=== PATIENT | male | born 1950 | race Caucasian/White ===

== ENCOUNTER 2025-06-05 06:06 | Day surgery (SDC) | payer MEDICARE, BC ==
[2025-06-04 10:38] LABS: MEAN PLATELET VOLUME 8.0 FL (7.4-10.4); RED CELL DISTRIBUTION WIDTH 16.4 % (11.5-14.5)
[2025-06-04 10:49] LABS: CREATININE 0.97 MG/DL (0.60-1.10); TOTAL CARBON DIOXIDE 31.3 MMOL/L (24-32); eGFR 76 ML/MIN
[2025-06-04 10:51] LABS: APTT 27 SECONDS (22-32); INR 1.1 INR
[2025-06-05] VITALS (14 sets, daily range): BP systolic 93–135; BP diastolic 54–77; PULSE 41–65; RESP 8–16; TEMP 97.7; O2SAT 92–98
[~2025-06-05] VITALS: Ht 177.8 cm; Wt 88.4 kg
[2025-06-05] MEDS ORDERED: MESA1.2T3 PO (06:41)
[2025-06-05] MEDS ORDERED: EMPA10TA PO (06:41)
[2025-06-05] MEDS ORDERED: CLOP75TA34 PO (06:41)
[2025-06-05] MEDS ORDERED: CARV-50 PO (06:41)
[2025-06-05] MEDS ORDERED: MULT-1249 PO (06:41)
[2025-06-05] MEDS ORDERED: SACU1TAB PO (06:41)
[2025-06-05] MEDS ORDERED: ROSU40TA89 PO (06:41)
[2025-06-05] MEDS ORDERED: TAMS-55 (06:41)
[2025-06-05] MEDS ORDERED: SPIR25TA5 PO (06:41)
[2025-06-05] MEDS ORDERED: PANT40TA54 PO (06:41)
[2025-06-05] MEDS ORDERED: APIX5TAB3 PO (06:41)
[2025-06-05] MEDS ORDERED: AMIO200T76 PO (06:41)
[2025-06-05] MEDS ORDERED: ASCO100031 PO (06:42)
[2025-06-05] MEDS ORDERED: RESV50CA (06:42)
[2025-06-05] MEDS ORDERED: UBID10CA4 PO (06:42)
[2025-06-05] MEDS ORDERED: VITA1CAP PO (06:43)
[2025-06-05] MEDS ORDERED: OSC500T PO (06:44)
[2025-06-05] MEDS ORDERED: L.AC1CAP6 PO (06:44)
[2025-06-05] MEDS ORDERED: SAW/1TAB2 (06:44)
[2025-06-05] MEDS ORDERED: OMEG-166 PO (06:45)
[2025-06-05] MEDS ORDERED: ERGO400C PO (06:45)
[2025-06-05] MEDS ORDERED: SOUR400C (06:46)
[2025-06-05] MEDS ORDERED: VITA100049 PO (06:46)
[2025-06-05] MEDS ORDERED: ELDE350C (06:47)
[2025-06-05] MEDS ORDERED: normal saline 1000ml 1,000 ML IV PRN (06:50)
[2025-06-05] MEDS ORDERED: ceFAZolin 2,000MG in D5W 50mL IV ONE (06:50)
--- NOTE | 2025-06-05 07:22 | ELECTROCARDIOGRAPH REPORT ---
[facility] Test Date: 2025-06-05 Test Time: 07:20:42 Pat Name: FAM LINARES Department: [facility] Patient ID: [id number] Room: Gender: M Manager Equipment: GIGI : 1950 Requested By: THO DUNBAR Order Number: [id number] Reading MD: Dr. JAME Dunbar Measurements Intervals [place] Rate: 41 P: 3 CO: 237 QRS: -49 QRSD: 136 T: 108 QT: 504 QTc: 417 Interpretive Statements Sinus bradycardia Prolonged CO interval RBBB and LAFB Nonspecific T abnormalities, lateral leads Electronically Signed On 06-05-2025 14:16:[address] JAME Dunbar Please click the below link to view image of tracing.
[2025-06-05] MEDS ORDERED: midazolam 1 mg/ML 2ml injection ONE (07:32)
[2025-06-05] MEDS ORDERED: fentaNYL/PF 50MCG/1 ML 2ML syringe ONE (07:32)
[2025-06-05] MEDS ORDERED: LIDOcaine 1% W/epiNEPHrine 1:100,000 20ml vial ONE (07:32)
[2025-06-05] MEDS ORDERED: iohexol 350 MG/ML 50ML vial IV ONE (08:27)
[2025-06-05] MEDS ORDERED: HYDROcodone/acetaminophen 5mg/325mg tablet PO PRN (10:00)
[2025-06-05] MEDS ORDERED: CEPH-585 PO (11:09)
[2025-06-05] MEDS: VANCOMYCIN 1GM 200ML H20 (PEG) 200 ML IV ONE (11:23)
[2025-06-05] MEDS: normal saline 1000ml 1,000 ML IV SCH (11:24)
--- NOTE | 2025-06-05 11:42 | RADIOLOGY REPORT ---
EXAM: DI CHEST,TWO VIEWS CLINICAL HISTORY: s/p pacemaker COMPARISON: None TECHNIQUE: Frontal and lateral view of the chest was obtained FINDINGS: Lines and Tubes: Cardiac pacemaker projects over left chest wall Lungs: No focal consolidation. Pleura: No effusion. No pneumothorax. Cardiomediastinal contours: Unremarkable Bones: No acute osseous abnormality. Status post left shoulder arthroplasty. IMPRESSION: No acute cardiopulmonary disease.
[2025-06-05] MEDS: HYDROcodone/acetaminophen 10/325mg tab PO PRN (14:31)
[2025-06-05] MEDS ORDERED: sod chloride 0.9% 10ml flush syringe IV SCH (16:00)
--- NOTE | 2025-06-07 09:19 | CARDIOLOGY REPORT ---
DATE OF SERVICE: 06/05/2025 DICTATING PHYSICIAN: JAME Dunbar MD PERMANENT PACEMAKER IMPLANTATION REPORT: GENDER: Male. AGE: 74. HEIGHT: 178 cm WEIGHT: 88 kg. BODY SURFACE AREA: 2.06 m2. 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 He had a Holter monitor back in 10/2023, which showed episodes of AFib and also some episodes of bradycardia. He had an event monitor in 12/2024. Lowest heart rate there was 35 per minute. Lately, the patient has been having increasingly tired and fatigued, occasional episodes of dizziness and progressive symptoms and the need for medications for PAF. It is decided to proceed with permanent pacemaker implantation. Risks, benefits, and alternative options were discussed. Informed consent was obtained. SURGEON: JAME Dunbar MD, [facility] DANCE CALLER SURGEON: None. ANESTHESIOLOGIST: None. ANESTHESIA: Conscious sedation and local anesthesia. COMPLICATIONS: None. BLOOD LOSS: Less than 5 mL. PROCEDURE: * Fluoroscopy. * Previous sequential pacemaker implantation. * Conscious sedation time of 60 minutes. DESCRIPTION OF PROCEDURE: Left infraclavicular area was prepped and draped in the usual fashion. Two separate accesses obtained in the left subclavian vein using percutaneous micropuncture technique. Two micropuncture wires were replaced with 2 J-wires. A horizontal incision placed in the left infraclavicular area. Using blunt electrocautery, subcutaneous pacemaker pocket was fashioned. External ends of the J-wires were retrieved into the pacemaker pocket. Two 7-[place] sheaths were advanced over them. Through one of them, RV lead was advanced to the RV apex, screwed into the RV apex. Appropriate pacing and sensing thresholds were placed. Sheath removed by a peel-away technique and lead anchored to the subcutaneous tissue with Ethibond. Through the second 7-[place] sheath, right atrial lead was advanced to the right atrium. J-wire hook. The right atrium screwed into the right atrial appendage. Appropriate pacing and sensing thresholds were obtained. Sheath removed by a peel-away technique and lead anchored to the subcutaneous tissue with Ethibond. Pocket was irrigated with copious antibiotic solution. Leads connected to appropriate sockets of the pulse generator. Set screws were tightened. Tug test performed and the pacemaker was suspended into the pacemaker pocket. The pocket was closed with continuous 0 Vicryl followed by interrupted 0 Vicryl, third layer of interrupted 2-0 Vicryl applied and then skin approximated with mana. Pressure dressing applied. The patient tolerated the procedure with no complications. TECHNICAL INFORMATION: Device used Medtronic MRI compatible pacemaker and lot number [id number], serial number [id number], Medtronic, 06/05/2025, left pectoral location. RIGHT ATRIAL LEAD: Model number 4076, 52 cm long, serial number [id number], Medtronic, 06/05/2025, right atrial appendage, P-wave amplitude 1.6 millivolts, pacing impedance of 513 ohm, pacing threshold 0.75 volts at 0.4 milliseconds. RV LEAD: Model number 5076, 68 cm long, serial number [id number], Medtronic, 06/05/2025, R-wave amplitude of 2.6 millivolts, pacing threshold of 0.5 volt at 0.4 milliseconds. IMPRESSION: A 74-year-old male with classic sinus syndrome with symptomatic tachycardia episode, underwent successful AV sequential pacemaker implantation with no complications. JAME Dunbar MD TID: [id number] RECEIPT: [id number] EUNICE/RABIA/ELEAZAR cc: Arnold Bhatt MD [facility]
== END 2025-06-05 15:00 | disposition home or self-care (01) ==
LOC: SSTAY O 06:06
PROVIDERS: ATTEND Internal Medicine Cardiovascular Disease
DX: I49.5 Sick sinus syndrome (principal); I45.2 Bifascicular block; I25.10 Atherosclerotic heart disease of native coronary artery without angina pectoris; I48.0 Paroxysmal atrial fibrillation; I42.9 Cardiomyopathy, unspecified
CPT/HCPCS: 33208; 36415; 71046; 80048; 85025; 85610; 85730; 93005; 99152; 99153; A4565; C1785; C1898; J0690; J1171; J2250; J3010; J3375; J3490; J7030; Z7610; Q9967

== ENCOUNTER 2025-06-06 02:29 | Emergency (ER) | payer MEDICARE, BC ==
[~2025-06-06] VITALS: Ht 177.8 cm; Wt 89.3 kg
[~2025-06-06 02:29] MED LIST: AMIO200T76 PO; APIX5TAB3 PO; ASCO100031 PO; CARV-50 PO; CEPH-585 PO; CLOP75TA34 PO; ELDE350C; EMPA10TA PO; ERGO400C PO; L.AC1CAP6 PO; MESA1.2T3 PO; MULT-1249 PO; OMEG-166 PO; OSC500T PO; PANT40TA54 PO; RESV50CA; ROSU40TA89 PO; SACU1TAB PO; SAW/1TAB2; SOUR400C; SPIR25TA5 PO; TAMS-55; UBID10CA4 PO; VITA100049 PO; VITA1CAP PO
[2025-06-06 02:37] VITALS: TEMP 98.4
[2025-06-06 03:30] VITALS: BP 102/66; PULSE 60; RESP 10; O2SAT 95
[2025-06-06] MEDS: LIDOcaine 1% W/epiNEPHrine 1:100,000 20ml vial SQ ONE (03:39)
--- NOTE | 2025-06-06 04:01 | Physician Documentation ---
History of Present Illness ~ General Chief Complaint: Post-operative complication Stated Complaint: BLEEDING FROM CATH Time Seen by MD: 02:47 History of Present Illness Initial Comments 74-year-old male presenting with some postoperative bleeding. The patient had a pacemaker placed earlier today by Dr. Dunbar. Reports that tonight he noticed that there was blood oozing from the site. He applied some pressure but reports that the bleeding continued. Denies any dizziness or any other associated symptoms. The pacemaker was placed for sick sinus syndrome and bradycardia. Medication Reconciliation Allergies: Coded Allergies: No Known Allergies (Unverified , 06/06/25) Scheduled Amiodarone Hcl (Cordarone), 1 TAB PO DAILY, (Reported) Apixaban (Eliquis), 1 TAB PO BID, (Reported) Ascorbic Acid (Vitamin C), 1 TAB PO DAILY, (Reported) Calcium Carbonate* (Oscal*), 1 TAB PO DAILY, (Reported) Carvedilol (Carvedilol), 0.5 TAB PO BID, (Reported) Cephalexin*Monohydrate* (Keflex*), 1 CAP PO Q6H Clopidogrel Bisulfate (Clopidogrel), 1 TAB PO DAILY, (Reported) Empagliflozin (Jardiance), 1 TAB PO DAILY, (Reported) Ergocalciferol (Vitamin D), 1 CAP PO DAILY, (Reported) L.acidoph & Paracasei,B.lactis (Probiotic), 1 CAP PO DAILY, (Reported) Mesalamine (Mesalamine), 4 TAB PO DAILY, (Reported) Multivitamin (Multivitamin), 1 TAB PO DAILY, (Reported) [place]-3/Dha/Epa/Fish Oil (Fish Oil 1,000 Mg Ec Softgel), 1 CAP PO DAILY, (Reported) Pantoprazole Sodium (Pantoprazole Sodium), 1 TAB PO DAILY, (Reported) Rosuvastatin Calcium (Rosuvastatin Calcium), 1 TAB PO DAILY, (Reported) Sacubitril/Valsartan (Entresto 24 mg-26 mg Tablet), 1 TAB PO BID, (Reported) Spironolactone (Spironolactone), 1 TAB PO DAILY, (Reported) Ubidecarenone (Co Q-10), 1 CAP PO DAILY, (Reported) Vitamin B Complex (Vitamin B Complex), 1 CAP PO DAILY, (Reported) Miscellaneous Medications Elderberry Fruit (Elderberry), (Reported) Resveratrol (Resveratrol), (Reported) Saw/Vit E/Sod Mag/Lyc/Beta/Pyg (Prostate Health Caplet), (Reported) Sour [place] (Tart Childress), (Reported) Tamsulosin Hcl* (Flomax*), (Reported) Vitamin E Mixed (Vitamin E), 1,000 UNIT PO, (Reported) Review of Systems All Other Systems at this time: Reviewed and Negative Physical Exam Physical Exam Vital Signs: Temperature: 98.4, Source: Oral, Heart Rate: 60, Respiratory Rate: 10, BP: 102/66, Pulse Oximetry: 95, Weight: 89.300 Oxygen Flow Rate: 0 Physical Exam I have reviewed the triage vitals. CONST: Well developed and well nourished. In no acute distress HENT: Head Atraumatic EYES: Pupils are equal, round and reactive to light. Normal conjunctiva NECK: Normal range of motion. Supple. CARDIO: Normal rate and regular rhythm. No murmurs, rubs, or gallops. S1, S2. PULM/CHEST: No respiratory distress. Lungs clear to auscultation. No wheeze. Left upper chest with a pacemaker in place with postprocedural wound which is closed with several mana with oozing blood from the wound. Four mana in place with one of the mana slightly loose. ABD: Soft and nontender. Nondistended. Bowel sounds normal. No guarding. : Exam deferred MSK: No edema. No deformity. NEURO: Alert and oriented to person, place and time. Moving all extremities SKIN: Warm and dry. PSYCH: Normal mood and affect. Good eye contact. Procedures Laceration/Wound Repair Laceration/Wound Repair : Location: Left upper chest Length (cm): 5 Anesthesia: Lidocaine w/ Epi Volume Anesthetic (mls): 6 Prep: betadine Suture Size/Type: 4-0, ethilon Number of Superficial Sutures: 8 Dressing Applied: simple Tolerated Procedure Well?: yes, no complications Procedure Note Pacemaker placement post procedural wound with oozing blood that had slightly reopened. One of the loose mana was removed. Other three mana remained in place. 8 single interrupted sutures were placed to close the wound. Progress Results/Orders Results/Orders Orders - BANDAR BRISENO MD Electrocardiogram (06/06/25 02:48) Completed Orders - BANDAR BRISENO MD Lidocaine 1% W/Epi 1:100,000 (Xylocaine (06/06/25 03:25) Vital Signs 06/06/25 06/06/25 06/06/25 06/06/25 02:37 03:09 03:15 03:30 Temp 98.4 Pulse 67 60 60 60 Resp 16 15 11 10 B/P (MAP) 143/91 123/75 (91) 123/5 (44) 102/66 (78) Pulse Ox 98 98 98 95 O2 Flow Rate 0 0 EKG/XRAY/CT/US/VASC/MRI EKG : Additional Comment EKG as interpreted by me showing an atrial paced rhythm, rhythm is normal sinus, no ischemia, normal axis Medical Decision Making Differential Diagnosis 74-year-old male presenting with a bleeding post procedural wound. The wound was closed with sutures-please see procedure note. Patient is already on Keflex and advised him to continue with this medication. He has follow up with [facility] next week. Advised him to keep this appointment. Return to the ED with any acutely worsening symptoms. Departure Disposition: 01 HOME / SELF CARE / HOMELESS Impression: Primary Impression: Postoperative bleeding from incision Condition: Improved Additional Instructions: Please continue with all of your medications. Keep your appointment with Cardiology next week. Return to the ED with any acutely worsening symptoms. Referrals: NO PRIMARY CARE PROVIDER (PCP) Signature Scribe Signature: 1 Attestation: 1 BANDAR BRISENO MD Jun 06, 2025 04:01
--- NOTE | 2025-06-06 07:29 | ELECTROCARDIOGRAPH REPORT ---
[facility] Test Date: 2025-06-06 Test Time: 02:45:06 Pat Name: FAM LINARES Department: PRE/OP CARDIOLOGY Patient ID: [facility]-[id number] Room: Gender: M Inspector And Tester: : 1950 Requested By: BANDAR BRISENO Order Number: [id number] Reading MD: Dr. JAME Dunbar Measurements Intervals [employer] Rate: 60 P: 0 [place]: 73 QRS: -60 QRSD: 140 T: 89 QT: 473 QTc: 473 Interpretive Statements Atrial-paced rhythm Left bundle branch block Electronically Signed On 06-06-2025 17:26:[address] JAME Dunbar Please click the below link to view image of tracing.
== END 2025-06-06 04:25 | disposition home or self-care (01) ==
LOC: ER 02:29
DX: L76.22 Postprocedural hemorrhage of skin and subcutaneous tissue following other procedure (principal); Z79.899 Other long term (current) drug therapy
CPT/HCPCS: 12002; 93005; 99283; A6258; A6402; Z7610; A6449

== ENCOUNTER 2025-07-29 07:58 | Day surgery (SDC) | payer MEDICARE, BC ==
[2025-07-25 15:46] LABS: MEAN PLATELET VOLUME 7.4 FL (7.4-10.4); PRE OP HEMATOCRIT 43.0 % (42.0-52.0); PRE OP HEMOGLOBIN 14.0 g/dL (14.0-17.9); PRE OP PLATELET COUNT 224 X10'3 (140-440); PRE OP WHITE BLOOD COUNT 5.2 10'3 (4.8-10.8); RED CELL DISTRIBUTION WIDTH 16.0 % (11.5-14.5)
[2025-07-25 15:59] LABS: CREATININE 0.89 MG/DL (0.60-1.10); PRE OP ALT 27 U/L (30-65); PRE OP ANION GAP 6 (8-16); PRE OP AST 21 U/L (10-37); PRE OP BILIRUB, TOTAL 0.4 MG/DL (0.0-1.0); PRE OP GLUCOSE 93 MG/DL (70-104); PRE OP POTASSIUM 4.5 MMOL/L (3.4-5.1); PRE OP SODIUM 142 MMOL/L (135-145); TOTAL CARBON DIOXIDE 31.5 MMOL/L (24-32); eGFR 84 ML/MIN
[~2025-07-29] VITALS: Ht 177.8 cm; Wt 89.0 kg
[2025-07-29] MEDS: ceFAZolin 2gm/dext,iso 50mL 50 ML IV ONE (05:30)
[2025-07-29] MEDS: DOCUMENT DATE & TIME OF BETA-BLOCKER PO ONE (05:30)
[~2025-07-29 07:58] MED LIST changes: -ASCO100031 PO; +ASCO10004 PO; -CARV-50 PO; +CARV6.253 PO; -CEPH-585 PO; -ELDE350C; +ELDE350C PO; -RESV50CA; +RESV50CA PO; -SAW/1TAB2; +SAW/1TAB2 PO; -SOUR400C; +SOUR400C PO; -TAMS-55; +TAMS-55 PO; +ringers solution, lacted 1,000 ML IV SCH
[2025-07-29] MEDS ORDERED: triamcinolone acetonide 40mg/ml inj ONE (08:26)
[2025-07-29] MEDS ORDERED: BUPIVAcaine/PF 2.5mg/ml (0.25%) 10ml vial ONE (08:26)
[2025-07-29] MEDS ORDERED: LIDOcaine 2% (20mg/ml) 5ml vial ONE (08:26)
[2025-07-29 09:00] VITALS: BP 126/75; PULSE 64; RESP 16; TEMP 98; O2SAT 64; O2SAT 97
[2025-07-29] MEDS ORDERED: fentaNYL/PF 50MCG/1 ML 2ML syringe ONE (09:17)
[2025-07-29] MEDS ORDERED: midazolam 1 mg/ML 2ml injection ONE (09:17)
[2025-07-29] MEDS ORDERED: acetaminophen 1,000mg/100ml IV 100 ML IV PRN (09:25)
[2025-07-29] MEDS ORDERED: hydrALAZINE 20mg/ml inj. IV PRN (09:25)
[2025-07-29] MEDS ORDERED: HYDROmorphone/PF 0.2 MG/ML SYRINGE IV PRN ×2 (09:25)
[2025-07-29] MEDS ORDERED: labetalol 20mg/4ml (5mg/ml) syringe IV PRN (09:25)
[2025-07-29] MEDS ORDERED: morphine 4 MG/ML inj SYRINge IV PRN (09:25)
[2025-07-29] MEDS ORDERED: ondansetron/PF 4mg/2ml inj IV PRN (09:25)
[2025-07-29] MEDS: BUPIVAcaine/PF 2.5mg/ml (0.25%) 10ml vial IJ ONE (09:31)
[2025-07-29] MEDS: LIDOcaine 2% (20mg/ml) 5ml vial SQ ONE (09:31)
[2025-07-29] MEDS ORDERED: propofol inj 20 ML IV ONE (09:36)
[2025-07-29 09:44] VITALS: BP 98/55; PULSE 61; RESP 14; O2SAT 98
[2025-07-29] MEDS: ringers solution, lacted 1,000 ML IV SCH (09:44)
[2025-07-29 09:55] VITALS: BP 92/57; PULSE 60; RESP 12; O2SAT 93
[2025-07-29 10:05] VITALS: BP 99/60; PULSE 60; RESP 12; O2SAT 93
[2025-07-29 10:15] VITALS: BP 108/65; PULSE 60; RESP 18; O2SAT 94
--- NOTE | 2025-07-29 13:08 | OPERATIVE REPORT ---
Operative Report Providers to ~ Date of Procedure: Jul 29, 2025 Pre-Operative Diagnosis: Carpal tunnel syndrome right wrist Post-Operative Diagnosis SAME as PRE-Op Procedure Performed Right wrist open carpal tunnel release Surgeon: Arnold Rollins MD Material Liaison None Anesthesiologist: Jessica De Jesus Type of Anesthesia: Other Findings: Estimated Blood Loss: None Specimen Removed: None Description of Procedure: The patient is a 74-year-old man with right carpal tunnel syndrome refractory to nonsurgical treatment. Surgery is indicated to relieve symptoms. Risks and benefits were discussed with the patient and then he agreed to proceed. Once in the operating room the arm was prepped and draped in usual manner with a tourniquet on the forearm. Local anesthetic was infiltrated proximal to the volar wrist crease. Time-out procedure was identified and a 3 cm incision was made in the palm ulnar to the thenar crease in line with the radial side of the ring finger through skin and palmar fascia. The transverse carpal ligament was identified and incised longitudinally. The median nerve was protected while the ligament was divided distally to the transverse arch and proximally to the wrist crease followed by division of the forearm fascia. The nerve was decompressed at this point and no lesions were identified in the carpal canal. The incision was irrigated and closed with nylon suture. Sterile dressing was then applied and the tourniquet was released. The hand perfused well and the patient was taken to the recovery room in stable condition. ARNOLD ROLLINS Jr., MD Jul 29, 2025 13:08
== END 2025-07-29 10:34 | disposition home or self-care (01) ==
LOC: PAS 07:58
PROVIDERS: ATTEND Orthopaedic Surgery Hand Surgery
DX: G56.01 Carpal tunnel syndrome, right upper limb (principal); I10 Essential (primary) hypertension; E78.5 Hyperlipidemia, unspecified; I48.91 Unspecified atrial fibrillation; I42.9 Cardiomyopathy, unspecified; I25.2 Old myocardial infarction; M19.90 Unspecified osteoarthritis, unspecified site; Z87.891 Personal history of nicotine dependence; Z79.01 Long term (current) use of anticoagulants; Z79.02 Long term (current) use of antithrombotics/antiplatelets; Z79.899 Other long term (current) drug therapy; Z96.653 Presence of artificial knee joint, bilateral; Z96.611 Presence of right artificial shoulder joint; Z96.612 Presence of left artificial shoulder joint; Z95.0 Presence of cardiac pacemaker; Z95.5 Presence of coronary angioplasty implant and graft; Z98.890 Other specified postprocedural states
CPT/HCPCS: 36415; 64721; 80053; 82948; 85025; A4215; A6449; J2003; J2250; J2704; J3010; J3490; J7030; J7120; Z7506; Z7512; Z7610; J3301